=== PATIENT | female | born 2000 | race Caucasian/White ===

== ENCOUNTER 2021-06-06 02:54 | Outpatient (CLI) | payer BC, SELFPAY ==
--- NOTE | 2021-06-06 12:45 | PDOC.EEG_ITS ---
Neurology EEG EEG: [facility] Department of Neurology EEG REPORT Date of Recordin06/06/21 Interpreting Physician: Dr. Esmer Perry PCP/Referring Provider: TARSHA Marquez Reason for study: Ilda is a 21 year-old young woman with recurrent spells manifested by numbness, fuzzy, and a headache followed by collapse with LOC without tonic/clonic activity; concerning for seizure. Current Medications: Aimovig, rizatriptan prn, Trazadone HS, Lamotrigine (dose unknown), Effexor METHODS: A 21 channel digitized electroencephalogram was performed in the [facility] Clinical Neurophysiology Laboratory. The 10/20 international system of electrode placement was used and bipolar and referential electrode montages were recorded. In addition to EEG the patient was monitored for EKG and lateral/vertical eye movements. Activation procedures of photic stimulation and hyperventilation were performed if applicable. Video was used during activation procedures and during events where applicable. The duration of the recording was 30 minutes. DESCRIPTION OF EEG: The patient was noted to be awake and drowsy during the recording. During maximal wakefulness a 9-Hz posterior background rhythm was present which was well-modulated, symmetrical, reactive to eye opening, and of moderate voltage. With eye opening the background activity changed to a low voltage mixture of alpha, beta, and occasional theta range frequencies. Faster frequencies were present in the bilateral anterior head regions. There was a normal anterior-posterior voltage gradient. During drowsiness, there was attenuation of the posterior dominant background rhythm and vertex waves. No stage II sleep was recorded. Activating Procedures: Photic stimulation was performed which produced a symmetrical posterior driving response at various flash frequencies. Hyperventilation was performed with moderate effort and produced no physiological slowing of the background. EKG: EKG revealed normal sinus rhythm. INTERPRETATION: This EEG is normal during the awake state as well as during photic stimulation and hyperventilation. PRIOR EEG: none CLINICAL CORRELATION: No focal regions of cerebral dysfunction or epileptiform activity was present. N o sleep was recorded during the study which reduces the sensitivity of the exam. If seizure remains a part of the differential, consider a repeat sleep-deprived EEG or overnight ambulatory EEG. Epilepsy remains a clinical diagnosis and a normal EEG does not rule out epilepsy. Clinical correlation is advised. Esmer Perry MD
== END 2021-06-06 02:55 | disposition home or self-care (01) ==
LOC: RT 02:54
PROVIDERS: Visit Provider Physician Assistant
DX: R20.2 Paresthesia of skin (principal); R29.818 Other symptoms and signs involving the nervous system; R51.9 Headache, unspecified; R55 Syncope and collapse
CPT/HCPCS: 95816

== ENCOUNTER 2022-03-17 19:15 | Emergency (ER) | payer BC, SELFPAY ==
[2022-03-17 19:50] VITALS: BP 115/73; PULSE 90; RESP 16; TEMP 36.8; O2SAT 98
--- NOTE | 2022-03-17 20:15 | DI.RAD_ITS ---
Exam(s) XR HAND RT COMPLETE EXAM: XR HAND RT COMPLETE CLINICAL HISTORY: r/o fracture TECHNIQUE: COMPARISON: No exams were available for comparison FINDINGS: Three views were obtained. There is an ulnar minus variance. There is no evidence of acute fracture or dislocation. IMPRESSION: RADIATION DOSE DELIVERED: Total DLP
--- NOTE | 2022-03-17 20:53 | DI.VRAD_ITS ---
PROCEDURE INFORMATION: Exam: XR Right Hand Exam date and time: 03/17/2022 8:25 PM Age: 22 years old Clinical indication: Injury or trauma; Other: R/O fracture; Blunt trauma (contusions or hematomas); Hand; Right; Injury date: 03/17/22 TECHNIQUE: Imaging protocol: Radiologic exam of the Right hand. Views: 3 or more views. COMPARISON: No relevant prior studies available. FINDINGS: Bones/joints: There is approximately 3 mm ulnar minus variance. Osseous mineralization is normal. There are no inflammatory osseous erosive changes. The joint spaces are maintained without degenerative changes. No focal osseous lesions are identified. There are no acute displaced fractures or subluxations. Soft tissues: There is [id number]-pc-pawdnlah soft tissue swelling dorsal to the distal aspects of the metacarpals. IMPRESSION: No acute displaced fractures or subluxations. Dictated and Authenticated by: Abdelrahman Rob MD. Ordering:KATINA Provider Temporary
--- NOTE | 2022-03-17 21:06 | W.ED.GENAD ---
Discharge Plan Disposition Patient Disposition: HOME Condition: Stable Discharge Details Chief Complaint: Orthopedic Clinical Impression: Contusion of right hand Primary Care Provider: Micaela,Local ED Provider: Cecil Bergeron Discharge Instructions Instructions: Contusion in Adults (ED) Additional Instructions: X-rays unremarkable. [id number] Tylenol and/or Motrin as directed for discomfort. Rest, elevate, cool compresses every 2 hours for 20 minutes. Wear splint as needed, advance activity as tolerated. Please watch for new or worsening symptoms and return to the ER for any concerns Stand Alone Forms: Work Release Medical Decision Making 22-year-old female, [id number], punched a freezer yesterday. Presenting today for concern of broken bone. Neuro, vascular, tendon intact. Will obtain x-ray and reassess X-ray unremarkable Patient placed into a premade hand-wrist splint Standard discharge and return precautions were provided. Patient understands, is agreeable to this plan, and has no additional questions or concerns upon discharge. This documentation was generated using [employer] system, please disregard any oddities of phrase or misspellings. Medical Records Medical records reviewed: Yes I reviewed the patient's medical records. Imaging Data Radiologic Study: Attestation: I personally reviewed and interpreted this imaging study as follows: Imaging: X-Ray Radiologist's impression: PROCEDURE INFORMATION: Exam: XR Right Hand Exam date and time: 03/17/2022 8:25 PM Age: 22 years old Clinical indication: Injury or trauma; Other: R/O fracture; Blunt trauma (contusions or hematomas); Hand; Right; Injury date: 03/17/22 TECHNIQUE: Imaging protocol: Radiologic exam of the Right hand. Views: 3 or more views. COMPARISON: No relevant prior studies available. FINDINGS: Bones/joints: There is approximately 3 mm ulnar minus variance. Osseous mineralization is normal. There are no inflammatory osseous erosive changes. The joint spaces are maintained without degenerative changes. No focal osseous lesions are identified. There are no acute displaced fractures or subluxations. Soft tissues: There is rktm-gt-alscrobd soft tissue swelling dorsal to the distal aspects of the metacarpals. IMPRESSION: No acute displaced fractures or subluxations. HPI General Mode of arrival: ambulatory. Date/Time Provider Initiated Documentation: 03/17/22 21:02. Limitations to Documentation: no limitations. Information obtained by: patient and family. History of Present Illness 22 year old F presents to the emergency department with the chief complaint of R hand pain, described as moderate, with intensity rated at 7. Quality is described as aching, and is localized to the right and upper extremity. Patient reports no radiation. Patient started experiencing this day(s) and it has been constant. Immobilization improves symptom(s), Movement worsens symptoms . Patient notes no other symptoms.. Patient did receive the following treatments prior to arrival, none Related Data Allergies Allergy/AdvReac Type Severity Reaction Status Date / Time fluoxetine Allergy Unverified 03/17/22 19:56 pollen extracts Allergy Unverified 02/02/16 09:14 ziprasidone [From Geodon] Allergy Unverified 03/17/22 19:56 General Stated Complaint: Orthopedic FARRAH: 4 Review of Systems Constitutional Constitutional: Denies weakness Musculoskeletal Musculoskeletal: Denies deformity, Denies arthralgias, Denies numbness, Reports stiffness and Denies tingling Integumentary/Breasts Skin/Breast: Denies erythema Neurologic Neurologic: Denies numbness, Denies tingling and Denies weakness PFSH All Active Problems (Updated 03/17/22 @ 21:19 by TARSHA Rahman) Contusion of right hand (Acute) Social History Smoking/Tobacco Use Status: Current every day Tobacco Type: e-cigarettes Smoking risk assessment performed?: Yes Alcohol Intake: current Alcohol Intake frequency: a few times a week Drug use: Never Substance use type: marijuana Do you feel safe at home: Yes Do you feel safe in your relationship?: Yes Exam Const General: cooperative, healthy appearing, comfortable and no acute distress Orientation: alert and awake [facility] Head: normal to inspection, normocephalic and atraumatic Eyes Conjunctivae: conjunctivae normal Neck Neck: normal visual inspection, trachea midline and supple Resp Effort & Inspection: normal respiratory effort and able to speak in complete sentences Cardio Rate: regular rate Rhythm: regular rhythm Skin General skin exam: no rashes or lesions noted Neuro General: patient alert, patient awake, moves all extremities and no focal motor deficits Speech: speech normal Gait: normal gait Motor: muscle tone normal throughout Sensory Exam: no sensory deficits noted Extrem General: capillary refill normal Hand/finger images: 1. Diffuse mild swelling, ecchymosis, tenderness. No bony point tenderness or deformity. Limited flexion secondary to discomfort. Full extension. Neuro, vascular, tendon intact. Normal capillary refill and radial pulse Psych Appearance: grossly normal Mental Status: mental status grossly normal Course Vital Signs Vital signs: Vital Signs Temperature 36.8 C 03/17/22 19:50 Pulse 90 03/17/22 19:50 Respiratory Rate 16 03/17/22 19:50 Blood Pressure 115/73 03/17/22 19:50 Pulse Oximetry 98 03/17/22 19:50 Temperature 36.8 C 03/17/22 19:50 Temperature Source Temporal Artery Scan 03/17/22 19:50 Pulse 90 03/17/22 19:50 Respiratory Rate 16 03/17/22 19:50 Respiratory Effort Non-Labored 03/17/22 19:52 Blood Pressure 115/73 03/17/22 19:50 Blood Pressure Position Sitting 03/17/22 19:50 Pulse Oximetry 98 03/17/22 19:50 Oxygen Delivery Method Room Air 03/17/22 19:50 Oxygen Flow Rate 0 03/17/22 19:50 Pain Level 7 03/17/22 19:52
== END 2022-03-17 21:39 | disposition home or self-care (01) ==
PROVIDERS: Emergency Provider Physician Assistant
DX: S60.221A Contusion of right hand, initial encounter (principal); F17.290 Nicotine dependence, other tobacco product, uncomplicated; W22.09XA Striking against other stationary object, initial encounter
CPT/HCPCS: 99283; 73130; 99282